=== PATIENT | female | born 1990 | race Caucasian/White ===

== ENCOUNTER 2020-12-04 09:42 | Outpatient (CLI) | payer BC ==
[~2020-12-04] VITALS: Ht 172.7 cm; Wt 89.5 kg
[2020-12-04 09:46] VITALS: BP 106/55
== END 2020-12-04 10:43 | disposition home or self-care (01) ==
LOC: LDOP 09:42
PROVIDERS: ATTEND Obstetrics & Gynecology
DX: O26.893 Other specified pregnancy related conditions, third trimester (principal); R10.9 Unspecified abdominal pain; Z3A.33 33 weeks gestation of pregnancy
CPT/HCPCS: 59025

== ENCOUNTER 2021-01-21 09:44 | Inpatient (IN) | payer BC ==
[~2021-01-21] VITALS: Ht 172.7 cm; Wt 93.1 kg
[2021-01-27] MEDS ORDERED: PENICILLIN GK 5,000,000 UNITS in DEXTROSE 5% 100 ML IVPB ONE (11:30)
[2021-01-27] MEDS ORDERED: TERBUTALINE 1 MG/ML, 1ML SQ PRN (11:30)
[2021-01-27] MEDS ORDERED: OXYTOCIN 30U/ 0.9% NaCL 500ML 500 ML IV PRN (11:30)
[2021-01-27] MEDS ORDERED: SODIUM CITRATE/CITRIC ACID 30 ML UDC PO PRN (11:30)
[2021-01-27] MEDS ORDERED: ONDANSETRON 2MG/ML, 2ML IVPush PRN (11:30)
[2021-01-27] MEDS ORDERED: FENTANYL PF 100 MCG/2ML IVPush PRN (11:30)
[2021-01-27] MEDS ORDERED: OXYTOCIN 30U/ 0.9% NaCL 500ML 500 ML IV ONE (11:30)
[2021-01-27] MEDS ORDERED: TERBUTALINE 1 MG/ML, 1ML IVPush PRN (11:30)
[2021-01-27] MEDS ORDERED: FENTANYL PF 100 MCG/2ML IV PRN (11:30)
[2021-01-27 11:42] VITALS: BP 107/63
[2021-01-27] MEDS ORDERED: IRON1TAB60 PO (11:48)
[2021-01-27] MEDS ORDERED: PREN1TAB62 PO (11:48)
[2021-01-27] MEDS: LACTATED RINGERS 1,000 ML IV SCH ×2 (11:57→17:20)
[2021-01-27 11:59] LABS: BASOPHILS % (AUTO) 0 % (0-1); EOSINOPHILS % (AUTO) 0 % (1-7); LYMPHOCYTES % (AUTO) 11 % (22-44); MEAN CORPUSCULAR HEMOGLOBIN 28.1 pg (27.0-34.8); MEAN PLATELET VOLUME 9.2 fL (7.4-10.4); MONOCYTES % (AUTO) 6 % (2-9); NEUTROPHILS % (AUTO) 83 % (42-75); PLATELET COUNT 179 x10^3/uL (130-400); RED BLOOD COUNT 4.24 x10^6/uL (3.82-5.3)
[2021-01-27] MEDS ORDERED: PLEASE ENTER HEIGHT AND WEIGHT MC SCH (12:00)
[2021-01-27] MEDS ORDERED: MISOPROSTOL 200 MCG TABLET ONE (12:01)
[2021-01-27] MEDS ORDERED: OXYTOCIN 30U/ 0.9% NaCL 500ML 500 ML ONE (12:01)
[2021-01-27] MEDS ORDERED: LIDOCAINE 1%, 20ML ONE (12:01)
[2021-01-27] MEDS ORDERED: NEWBORN KIT ONE (12:17)
[2021-01-27] MEDS ORDERED: D5%-LACTATED RINGERS 1,000 ML IV SCH (12:30)
[2021-01-27] MEDS ORDERED: MISOPROSTOL 25 MCG TABLET ONE (13:14)
[2021-01-27] MEDS ORDERED: MISOPROSTOL 25 MCG TABLET VG PRN (13:30)
[2021-01-27] MEDS: PENICILLIN GK 2,500,000 UNITS in DEXTROSE 5% 100 ML IVPB SCH ×2 (16:24→20:31)
[2021-01-28] MEDS: PENICILLIN GK 2,500,000 UNITS in DEXTROSE 5% 100 ML IVPB SCH ×2 (00:33→04:37)
[2021-01-28] MEDS ORDERED: EPHEDRINE 50 MG/ML, 1ML IVPush PRN ×2 (01:30→02:30)
[2021-01-28] MEDS ORDERED: FENTANYL/BUPIV./NS/PF 250 ML EPIDCONT SCH ×2 (01:30→02:30)
[2021-01-28] MEDS ORDERED: LACTATED RINGERS 1,000 ML IVBOLUS PRN ×2 (01:30→02:30)
[2021-01-28] MEDS: LACTATED RINGERS 1,000 ML IV SCH ×3 (02:10→17:30)
[2021-01-28] MEDS ORDERED: BUPIVACAINE 0.25% ONE (02:27)
[2021-01-28] MEDS ORDERED: LACTATED RINGERS 1,000 ML IV SCH (02:30)
[2021-01-28] MEDS ORDERED: NALOXONE 0.4 MG/ML, 1ML IVPush PRN (02:30)
[2021-01-28] MEDS ORDERED: ONDANSETRON 2MG/ML, 2ML IV PRN (06:00)
[2021-01-28] MEDS ORDERED: SIMETHICONE 80 MG CHEW TAB PO PRN (06:00)
[2021-01-28] MEDS ORDERED: OXYcodone/APAP 5/325MG TABLET PO PRN ×2 (06:00)
[2021-01-28] MEDS ORDERED: METHYLERGONOVINE 0.2 MG/ML IM PRN (06:00)
[2021-01-28] MEDS ORDERED: MISOPROSTOL 200 MCG TABLET PR PRN (06:00)
[2021-01-28] MEDS ORDERED: ACETAMINOPHEN 325 MG TABLET PO PRN (06:00)
[2021-01-28] MEDS ORDERED: DOCUSATE 100 MG CAPSULE PO PRN (06:00)
[2021-01-28] MEDS: OXYTOCIN 30U/ 0.9% NaCL 500ML 500 ML IV SCH ×2 (08:19→16:00)
[2021-01-28] MEDS: IBUPROFEN 800 MG TABLET PO PRN ×2 (09:16→18:59)
[2021-01-28] MEDS: PRENATAL VIT/IRON/FA 1 EACH TABLET PO SCH (09:16)
[2021-01-28 09:30] VITALS: BP 96/57
[2021-01-28 11:59] VITALS: BP 106/72
[2021-01-28 13:35] LABS: BASOPHILS % (AUTO) 0 % (0-1); EOSINOPHILS % (AUTO) 0 % (1-7); LYMPHOCYTES % (AUTO) 10 % (22-44); MEAN CORPUSCULAR HEMOGLOBIN 28.2 pg (27.0-34.8); MEAN CORPUSCULAR HGB CONC 32.8 g/dL (32.4-35.8); MEAN PLATELET VOLUME 9.5 fL (7.4-10.4); MONOCYTES % (AUTO) 6 % (2-9); NEUTROPHILS % (AUTO) 84 % (42-75); PLATELET COUNT 162 x10^3/uL (130-400); RED BLOOD COUNT 3.98 x10^6/uL (3.82-5.3)
[2021-01-28 16:36] VITALS: BP 106/69
[2021-01-28] MEDS ORDERED: RHOGAM FROM BLOOD BANK 1 NOTE EA IM/IV ONE (19:00)
[2021-01-28 20:00] VITALS: BP 104/64
[2021-01-29] VITALS: BP 100/62
[2021-01-29] MEDS ORDERED: IBUP-1222 PO (05:54)
[2021-01-29 07:15] VITALS: BP 102/66
[2021-01-29] MEDS: PRENATAL VIT/IRON/FA 1 EACH TABLET PO SCH (07:44)
[2021-01-29] MEDS: IBUPROFEN 800 MG TABLET PO PRN (07:44)
== END 2021-01-29 14:40 | disposition home or self-care (01) | DRG 807 ==
LOC: LDIP 01-27 11:23 → 2NW 01-28 09:42
PROVIDERS: ADMIT Obstetrics & Gynecology; ATTEND Obstetrics & Gynecology
PROC: 10E0XZZ Delivery of Products of Conception, External Approach (ICD-10-PCS; principal; 2021-01-28)
PROC: 0KQM0ZZ Repair Perineum Muscle, Open Approach (ICD-10-PCS; 2021-01-28)
PROC: 3E0R3BZ Introduction of Anesthetic Agent into Spinal Canal, Percutaneous Approach (ICD-10-PCS; 2021-01-28)
PROC: 00HU33Z Insertion of Infusion Device into Spinal Canal, Percutaneous Approach (ICD-10-PCS; 2021-01-28)
DX: O48.0 Post-term pregnancy (principal); Z37.0 Single live birth; O70.1 Second degree perineal laceration during delivery; O76 Abnormality in fetal heart rate and rhythm complicating labor and delivery; O99.824 Streptococcus B carrier state complicating childbirth; Z3A.41 41 weeks gestation of pregnancy; Z86.16 Personal history of COVID-19; Z20.822 Contact with and (suspected) exposure to COVID-19; O69.81X0 Labor and delivery complicated by cord around neck, without compression, not applicable or unspecified
CPT/HCPCS: 36415; 85025; 85461; 86592; 86850; 86900; 87635; G0378; J2540; J2790; J3010; J2590; J7120